=== PATIENT | female | born 1955 | race Caucasian/White ===

== ENCOUNTER → 2023-06-07 | Outpatient (CLI) | payer MEDICARE, SELFPAY ==
--- NOTE | 2023-06-07 07:27 | MRI_ITS ---
STUDY: MRI BRAIN WITH AND WITHOUT CONTRAST REASON FOR EXAM: Female, 67 years old patient with multiple sclerosis (MS). TECHNIQUE: Standardized multiplanar fat and water weighted pulse sequences were obtained. 13 ml of IV Clariscan was administered for the contrast portion of the examination. COMPARISON: MRI of the brain dated July 16, 2014. FINDINGS: Normal size of the ventricles and extra-axial spaces for the patient''s age. There are numerous foci of abnormal T2 hyperintensity scattered throughout the deep white matter, subcortical white matter and periventricular white matter similar to previous MRI. This is probably secondary to mild multiple sclerosis. There is no evidence for recent intracranial ischemia or other cause of cytotoxic edema on diffusion weighted imaging (DWI). Normal T2* images of the brain without demonstrated susceptibility artifact. There is no demonstrated hemosiderin stain. Normal bilateral basal ganglia. Normal thalami. There is no extra-axial fluid accumulation. Normal flow voids within the major intracranial circulation suggesting patency by spin echo criteria. Normal venous enhancement. There is no enhancing intra-axial or extra-axial abnormality. Normal sella turcica, pituitary gland, infundibular stalk, optic chiasm and hypothalamus. Normal tectal plate and pineal gland. Normal midbrain, tayler and medulla. Normal cerebellum. Normal basal cisterns. Normal bilateral temporal bones. Normal bilateral internal auditory canals. No demonstrated orbital abnormality, within the constraints of a routine brain study. Normal visualized paranasal sinuses. Normal calvarium and skull base. Normal visualized soft tissue structures. Normal visualized upper cervical spine. MRI/Brain W/WO Contrast IMPRESSION: 1. Extensive abnormal white matter signal appears similar to previous MRI consistent with multiple sclerosis. 2. No MR evidence to suggest active multiple sclerosis or acute infarct. Electronically Signed: Sierra Recinos MD at 6:09 EDT ,
--- NOTE | 2023-06-07 07:27 | MRI_ITS ---
STUDY: MRI CERVICAL SPINE WITH AND WITHOUT CONTRAST REASON FOR EXAM: Female, 67 years old patient with multiple sclerosis (MS). TECHNIQUE: Standardized fat and water weighted pulse sequences were obtained in the sagittal and axial following administration of 13 ml of IV Clariscan. COMPARISON: Prior comparable comparison studies are not available for review at this time. FINDINGS: Normal foramen magnum and brainstem-cervical cord junction. Normal craniovertebral junction. Normal anterior atlantoaxial articulation. Normal odontoid process. Normal cervical lordosis. Normal vertebral bodies and posterior osseous elements. C2-3: Normal endplates. Normal disc height, signal and morphology. Normal central canal and intervertebral neural foramina. C3-4: Normal endplates. Normal disc height, signal and morphology. Normal central canal and intervertebral neural foramina. C4-5: Normal endplates. Normal disc height, signal and morphology. Normal central canal and intervertebral neural foramina. C5-6: There is narrowing of the disc. There is a disc bulge and osteophyte complex. There is severe left-sided neural foraminal narrowing with potential nerve root impingement. Right neural foramen is patent. There is a mild central canal stenosis. C6-7: There is narrowing of the disc. There is a distal and osteophyte complex. There is mild bilateral foraminal narrowing with uncovertebral joint hypertrophy. There is mild central acquired canal stenosis. C7-T1: Normal endplates. Normal disc height, signal and morphology. Normal central canal and intervertebral neural foramina. Normal cervical cord. There is no demonstrated cervical cord demyelinating process. Normal visualized soft tissue structures. There is no obvious abnormal enhancement after intravenous administration contrast. MRI/Spine Cervical W/WO Contrast IMPRESSION: 1. Mild multilevel degenerative changes of the cervical spine with neural foraminal narrowing, central canal stenosis and potential nerve root impingement as described. 2. No MR evidence to suggest demyelination. Electronically Signed: Sierra Recinos MD at 4:42 EDT ,
[2023-06-07 08:15] LABS: CREATININE FINGERSTICK 1.1 mg/dL (0.55-1.02)
== END | disposition home or self-care (01) ==
PROVIDERS: PCP Internal Medicine; Referring Provider Internal Medicine; Visit Provider Internal Medicine
DX: G35 Multiple sclerosis (principal)
CPT/HCPCS: 70553; 72156; A9575